=== PATIENT | female | born 1985 | race Caucasian/White ===

== ENCOUNTER 2017-01-02 19:42 | Emergency (ER) | payer BC ==
[~2017-01-02] VITALS: Ht 157.5 cm; Wt 63.0 kg
[~2017-01-02 19:42] MED LIST: Hydrocodone/Acetaminophen PO; LORA10TA7 PO; PRENCAP6 PO
[2017-01-02 19:47] VITALS: PULSE 80; RESP 20; TEMP 97.9; O2SAT 98
[2017-01-02] MEDS ORDERED: PENI500T PO (20:05)
--- NOTE | 2017-01-02 20:06 | PD ---
HPI Chief Complaint: ENT Complaint Time Seen by Provider: 20:02 Travel History International Travel<30 days: No Contact w/Intl Traveler<30days: No Traveled to known affect area: No History of Present Illness HPI 31-year-old female presents emergency department for evaluation of sore throat times one day. Patient reports she has history of frequent tonsillitis/strep throat pharyngitis and the symptoms feel similar to that. She denies fever or chills. She reports pain with swallowing but has no difficulty eating or drinking. She reports the discomfort as mild to moderate, nonradiating, no alleviating factors, severity 4 out of 10. PFSH Past Medical History Medical History: Denies Significant Hx ?: Not LMP: CONTOLL ( FEBRUARY 2015 ) Past Surgical History Section: Yes Other Surgery: Yes (WISDOM TEETH) Social History Alcohol Use: No Tobacco Use: No Substance Use: No Allergies-Medications (Allergen,Severity, Reaction): Coded Allergies: No Known Allergies (Unverified , 01/02/17) Reported Meds & Prescriptions Reported Meds & Active Scripts Active No Active Prescriptions or Reported Medications Review of Systems Except as stated in HPI: all other systems reviewed are Neg General / Constitutional: No: Fever Eyes: No: Visual changes HENT: No: Headaches Cardiovascular: No: Chest Pain or Discomfort Respiratory: No: Shortness of Breath Gastrointestinal: No: Abdominal Pain Genitourinary: No: Dysuria Musculoskeletal: No: Pain Physical Exam Narrative GENERAL: Well-nourished, well-developed patient. SKIN: Focused skin assessment warm/dry. HEAD: Normocephalic. EYES: No scleral icterus. No injection or drainage. THROAT: Pharyngeal erythema, tonsillar swelling with exudate NECK: Supple, trachea midline. No JVD . Mild anterior lymphadenopathy. CARDIOVASCULAR: Regular rate and rhythm without murmurs, gallops, or rubs. RESPIRATORY: Breath sounds equal bilaterally. No accessory muscle use. GASTROINTESTINAL: Abdomen soft, non-tender, nondistended. MUSCULOSKELETAL: No cyanosis, or edema. BACK: Nontender without obvious deformity. No CVA tenderness. Data Data Last Documented VS Vital Signs Date Time Temp Pulse Resp B/P Pulse Ox O2 Delivery O2 Flow Rate FiO2 01/02/17 19:47 97.9 80 20 98 MDM Medical Decision Making Medical Screen Exam Complete: Yes Emergency Medical Condition: Yes Differential Diagnosis Strep pharyngitis, viral pharyngitis, mononucleosis Narrative Course Patient seen and examined. Patient stable at time of exam. Physical exam consistent with strep pharyngitis. Patient be treated with antibiotic. Return precautions discussed. Patient verbalizes understanding. Diagnosis Primary Impression: Exudative tonsillitis Referrals: Primary Care Physician Additional Instructions: Take the antibiotics as prescribed. Drink plenty fluids and rest. Take [id number] Motrin and/or Tylenol as needed for pain. Return to the emergency department if he developed new or worsening symptoms such as severe increasing pain, difficulty swallowing. Scripts Penicillin V Potassium 500 Mg Tyt405 Mg PO Q12HR #20 TAB Prov:Ericka Mtz 01/02/17 Disposition: 01 DISCHARGE HOME Condition: Stable Ericka Mtz Jan 02, 2017 20:06
== END 2017-01-02 20:15 | disposition home or self-care (01) ==
LOC: PHEFT 19:42
DX: J03.90 Acute tonsillitis, unspecified (principal)
CPT/HCPCS: 99283

== ENCOUNTER 2017-12-30 05:28 | Inpatient (IN) | END 2018-01-01 15:21 | disposition home or self-care (01) | LOC: H1EA 05:28 | PROVIDERS: ADMIT Obstetrics & Gynecology; ATTEND Obstetrics & Gynecology ==